=== PATIENT | male | born 1940 | race Caucasian/White ===

== ENCOUNTER 2018-08-27 04:15 | Inpatient (IN) | payer MEDICARE ==
[~2018-08-27] VITALS: Ht 175.3 cm; Wt 63.5 kg
--- NOTE | 2018-08-27 04:24 | NUR ---
BIB [facility] FROM HOME WITH C/O ABD PAIN, PER EMS PT HAS HERNIA AND COLOSTOMY BAG TO LLQ. FSBS-122, 98% R/A, HR-78, B/P-138/87. MONITORS APPLIED, SIDERAILS UP X2, CALL LIGHT WITHIN REACH. MEDICAL STUDENT AT BEDSIDE FOR EVAL
[2018-08-27] MEDS ORDERED: ACET325C5 PO (04:25)
[2018-08-27] MEDS ORDERED: PROSTATE MEDICATION (04:25)
[2018-08-27] MEDS ORDERED: ONDANSETRON 2MG/ML, 2ML IVPush ONE (04:30)
[2018-08-27] MEDS ORDERED: SODIUM CHLORIDE FLUSH 10ML SYR IVF ONE ×2 (04:30→06:30)
[2018-08-27] MEDS ORDERED: MORPHINE SULFATE 4 MG/ML, 1ML IVPush PRN (04:30)
--- NOTE | 2018-08-27 05:09 | NUR ---
per erp hold iv site and medications at this time
[2018-08-27 05:22] LABS: MICROSCOPIC AUTO
[2018-08-27 05:27] LABS: CULTURE INDICATED? YES
[2018-08-27 05:29] LABS: MEAN CORPUSCULAR HEMOGLOBIN 32.3 pg (27.5-34.5); MEAN CORPUSCULAR HGB CONC 32.9 g/dL (33.2-36.2); MEAN CORPUSCULAR VOLUME 98.1 fL (81-97); MEAN PLATELET VOLUME 10.1 fL (7.4-10.4); PLATELET COUNT 193 x10^3/uL (130-400); RED BLOOD COUNT 4.88 x10^6/uL (4.38-5.82); RED CELL DISTRIBUTION WIDTH 15.2 % (9.4-14.8)
[2018-08-27] MEDS ORDERED: CEFTRIAXONE PMX 1GM/50ML 50 ML IV ONE (05:30)
[2018-08-27] MEDS ORDERED: SODIUM CHLORIDE 0.9% 1,000 ML IV ONE ×2 (05:30→06:20)
[2018-08-27] MEDS ORDERED: CEFTRIAXONE PMX 1GM/50ML 50 ML ONE (05:34)
[2018-08-27 05:42] LABS: ALANINE AMINOTRANSFERASE 31 U/L (12-78); ALBUMIN 2.6 g/dL (3.4-5.0); ANION GAP 13 mmol/L (5-15); CALCIUM 9.1 mg/dL (8.5-10.1); CHLORIDE 101 mmol/L (98-107); CREATININE 4.41 mg/dL (0.7-1.3)
[2018-08-27 05:45] LABS: ALKALINE PHOSPHATASE 82 U/L (45-117); BILIRUBIN,TOTAL 1.5 mg/dL (0.2-1.0); TOTAL PROTEIN 7.5 g/dL (6.4-8.2)
--- NOTE | 2018-08-27 05:53 | NUR ---
pt resting calmly, iv fluids and abx infusing, monitors in place, call light within reach. awaiting room for admit
[2018-08-27 06:17] LABS: MD YES
[2018-08-27 06:19] LABS: BAND#(MANUAL) 0.55 x10^3/uL; BANDS%(MANUAL) 3 % (0-7); MONOS#(MANUAL) 0.73 x10^3/uL (0.3-2.7); MONOS% (MANUAL) 4 % (2-9); MYELOCYTES# (MANUAL) 0.18 x10^3/uL (0-0); MYELOCYTES% (MANUAL) 1 % (0-0); SEG#(MANUAL) 16.84 x10^3/uL (1.8-6.8); SEGS% (MANUAL) 92 % (42-75)
[2018-08-27 06:20] LABS: <PLATELET ESTIMATE> ADEQUATE; <PLT MORPHOLOGY> NORMAL PLT MORPH; <RBC MORPHOLOGY> NORMAL
[2018-08-27] MEDS ORDERED: SODIUM CHLORIDE 0.9% 1,000ML IVBOLUS ONE (06:30)
--- NOTE | 2018-08-27 06:40 | NUR ---
PT TO ULTRASOUND
--- NOTE | 2018-08-27 06:51 | NUR ---
report given to arnaldo wiley
--- NOTE | 2018-08-27 06:54 | NUR ---
assumed patient care. patient in us at this time
--- NOTE | 2018-08-27 07:02 | NUR ---
Trae corona in ED - 08/27/18 at 0702 by JAVED ua sent and patient updated on poc. lab at bed. call light with patient
--- NOTE | 2018-08-27 07:07 | NUR ---
Patient from . 2000 ml dark urine emptied from urine bag. Patient VSS.
[2018-08-27 07:58] VITALS: BP 107/74
[2018-08-27] MEDS ORDERED: ACETAMINOPHEN 325 MG TABLET PO PRN (08:30)
[2018-08-27] MEDS ORDERED: POLYETHYLENE GLYCOL 17 GM PACKET PO PRN (08:30)
[2018-08-27] MEDS: HEPARIN 5,000 UNITS/ML, 1ML SQ SCH ×2 (09:25→17:31)
[2018-08-27] MEDS: TAMSULOSIN 0.4 MG CAP.ER.24H PO SCH (09:25)
[2018-08-27] MEDS: SODIUM CHLORIDE 0.9% 1,000 ML IV SCH ×2 (09:25→17:32)
[2018-08-27] MEDS: SENNA/DOCUSATE TABLET PO SCH (09:25)
[2018-08-27] MEDS ORDERED: PHARMACY MAY ADJ FOR RENAL FX MC PRN (11:30)
[2018-08-27 11:35] LABS: ABSOLUTE RETICS # 0.045 x10^6/uL (0.5-1.5); RED BLOOD COUNT 4.48 x10^6/uL (4.38-5.82)
[2018-08-27 11:40] LABS: CALCIUM 8.1 mg/dL (8.5-10.1)
[2018-08-27 12:37] LABS: THYROID STIMULATING HORMONE 0.922 mIU/L (0.358-3.740)
[2018-08-27 13:27] VITALS: BP 97/72
[2018-08-27 18:43] VITALS: BP 111/73
[2018-08-28 00:30] VITALS: BP 114/74
[2018-08-28] MEDS: HEPARIN 5,000 UNITS/ML, 1ML SQ SCH ×3 (01:42→17:56)
[2018-08-28] MEDS: SODIUM CHLORIDE 0.9% 1,000 ML IV SCH ×2 (01:42→09:09)
[2018-08-28 05:37] LABS: MEAN CORPUSCULAR HEMOGLOBIN 32.5 pg (27.5-34.5); MEAN CORPUSCULAR HGB CONC 32.6 g/dL (33.2-36.2); MEAN CORPUSCULAR VOLUME 99.6 fL (81-97); MEAN PLATELET VOLUME 10.1 fL (7.4-10.4); PLATELET COUNT 190 x10^3/uL (130-400); RED BLOOD COUNT 3.94 x10^6/uL (4.38-5.82)
[2018-08-28 05:39] LABS: CHLORIDE 115 mmol/L (98-107)
[2018-08-28 05:47] LABS: ALANINE AMINOTRANSFERASE 27 U/L (12-78); ALBUMIN 1.9 g/dL (3.4-5.0); ALKALINE PHOSPHATASE 65 U/L (45-117); ANION GAP 6 mmol/L (5-15); BILIRUBIN,TOTAL 0.9 mg/dL (0.2-1.0); CALCIUM 7.9 mg/dL (8.5-10.1); TOTAL PROTEIN 5.5 g/dL (6.4-8.2)
[2018-08-28 06:17] LABS: BASOPHILS % (AUTO) 0 % (0-1); EOSINOPHILS # (AUTO) 0.07 x10^3/uL (0-0.4); EOSINOPHILS % (AUTO) 1 % (1-7); LYMPHOCYTES # (AUTO) 0.37 x10^3/uL (1-3.4); LYMPHOCYTES % (AUTO) 3 % (22-44); MD SCAN; MONOCYTES # (AUTO) 0.67 x10^3/uL (0.2-0.8); MONOCYTES % (AUTO) 6 % (2-9); NEUTROPHILS # (AUTO) 10.42 x10^3/uL (1.8-6.8); NEUTROPHILS % (AUTO) 90 % (42-75)
[2018-08-28] MEDS: CEFTRIAXONE PMX 1GM/50ML 50 ML IV SCH (06:17)
[2018-08-28 06:34] VITALS: BP 128/72
[2018-08-28] MEDS: TAMSULOSIN 0.4 MG CAP.ER.24H PO SCH (09:08)
[2018-08-28] MEDS: SENNA/DOCUSATE TABLET PO SCH (09:08)
[2018-08-28] MEDS ORDERED: ERGOCALCIFEROL 50,000 UNIT CAPSULE PO SCH (11:00)
[2018-08-28 12:07] VITALS: BP 138/88
[2018-08-28] MEDS: SODIUM CHLORIDE 0.45% 1,000 ML IV SCH ×2 (12:28→21:10)
[2018-08-28] MEDS: POTASSIUM CHLORIDE 20 MEQ TAB.ER.PRT PO SCH ×2 (12:28→17:55)
[2018-08-28] MEDS ORDERED: POTASSIUM PHOSPHATE 22 MEQ in SODIUM CHLORIDE 0.9% 500 ML IV ONE (14:00)
[2018-08-28 14:25] LABS: CREATININE,URINE RANDOM 51.1 mg/dL
[2018-08-28 14:37] LABS: MICROSCOPIC INDICATED
[2018-08-28] MEDS: FERROUS SULFATE 325 MG TABLET PO SCH (17:55)
[2018-08-28 18:27] VITALS: BP 116/76
[2018-08-29 00:33] VITALS: BP 138/82
[2018-08-29] MEDS: HEPARIN 5,000 UNITS/ML, 1ML SQ SCH ×3 (01:26→16:57)
[2018-08-29] MEDS: SODIUM CHLORIDE 0.45% 1,000 ML IV SCH ×2 (04:30→23:06)
[2018-08-29 05:44] LABS: ANION GAP 6 mmol/L (5-15); CALCIUM 7.2 mg/dL (8.5-10.1); CHLORIDE 117 mmol/L (98-107); CREATININE 0.78 mg/dL (0.7-1.3)
[2018-08-29 05:46] LABS: BASOPHILS % (AUTO) 0 % (0-1); EOSINOPHILS # (AUTO) 0.15 x10^3/uL (0-0.4); EOSINOPHILS % (AUTO) 2 % (1-7); LYMPHOCYTES # (AUTO) 0.53 x10^3/uL (1-3.4); LYMPHOCYTES % (AUTO) 5 % (22-44); MD NO; MEAN CORPUSCULAR HEMOGLOBIN 32.7 pg (27.5-34.5); MEAN CORPUSCULAR HGB CONC 32.5 g/dL (33.2-36.2); MEAN CORPUSCULAR VOLUME 100.3 fL (81-97); MEAN PLATELET VOLUME 9.8 fL (7.4-10.4); MONOCYTES # (AUTO) 0.23 x10^3/uL (0.2-0.8); MONOCYTES % (AUTO) 2 % (2-9); NEUTROPHILS # (AUTO) 9.08 x10^3/uL (1.8-6.8); NEUTROPHILS % (AUTO) 91 % (42-75); PLATELET COUNT 213 x10^3/uL (130-400); RED CELL DISTRIBUTION WIDTH 15.2 % (9.4-14.8)
[2018-08-29] MEDS: CEFTRIAXONE PMX 1GM/50ML 50 ML IV SCH (06:16)
[2018-08-29 06:26] VITALS: BP 129/86
[2018-08-29] MEDS: SENNA/DOCUSATE TABLET PO SCH (08:40)
[2018-08-29] MEDS: TAMSULOSIN 0.4 MG CAP.ER.24H PO SCH (08:40)
[2018-08-29] MEDS: FERROUS SULFATE 325 MG TABLET PO SCH ×2 (08:40→16:57)
[2018-08-29] MEDS ORDERED: POTASSIUM PHOSPHATE 44 MEQ in SODIUM CHLORIDE 0.9% 500 ML IV ONE (09:00)
[2018-08-29 12:41] VITALS: BP 133/89
[2018-08-29 18:53] VITALS: BP 136/89
[2018-08-30 00:21] VITALS: BP 124/86
[2018-08-30] MEDS: HEPARIN 5,000 UNITS/ML, 1ML SQ SCH ×3 (00:42→17:12)
[2018-08-30 05:34] LABS: BASOPHILS % (AUTO) 0 % (0-1); EOSINOPHILS # (AUTO) 0.13 x10^3/uL (0-0.4); EOSINOPHILS % (AUTO) 2 % (1-7); LYMPHOCYTES % (AUTO) 6 % (22-44); MD NO; MEAN CORPUSCULAR HEMOGLOBIN 32.6 pg (27.5-34.5); MEAN CORPUSCULAR VOLUME 98.9 fL (81-97); MEAN PLATELET VOLUME 9.9 fL (7.4-10.4); MONOCYTES # (AUTO) 0.43 x10^3/uL (0.2-0.8); MONOCYTES % (AUTO) 5 % (2-9); NEUTROPHILS % (AUTO) 88 % (42-75); PLATELET COUNT 224 x10^3/uL (130-400); RED BLOOD COUNT 4.01 x10^6/uL (4.38-5.82); RED CELL DISTRIBUTION WIDTH 15.1 % (9.4-14.8)
[2018-08-30 05:41] LABS: CHLORIDE 111 mmol/L (98-107)
[2018-08-30 05:49] LABS: ALANINE AMINOTRANSFERASE 52 U/L (12-78); ALBUMIN 1.8 g/dL (3.4-5.0); ALKALINE PHOSPHATASE 75 U/L (45-117); ANION GAP 8 mmol/L (5-15); BILIRUBIN,TOTAL 0.8 mg/dL (0.2-1.0); CALCIUM 7.2 mg/dL (8.5-10.1); CREATININE 0.76 mg/dL (0.7-1.3); TOTAL PROTEIN 5.5 g/dL (6.4-8.2)
[2018-08-30] MEDS: CEFTRIAXONE PMX 1GM/50ML 50 ML IV SCH (05:49)
[2018-08-30] MEDS: SODIUM CHLORIDE 0.45% 1,000 ML IV SCH (08:05)
[2018-08-30] MEDS: FERROUS SULFATE 325 MG TABLET PO SCH ×2 (08:25→17:12)
[2018-08-30] MEDS: TAMSULOSIN 0.4 MG CAP.ER.24H PO SCH (08:26)
[2018-08-30] MEDS: SENNA/DOCUSATE TABLET PO SCH (08:26)
[2018-08-30 08:46] VITALS: BP 130/89
[2018-08-30] MEDS ORDERED: POTASSIUM PHOSPHATE 44 MEQ in SODIUM CHLORIDE 0.9% 500 ML IV ONE (09:00)
[2018-08-30] MEDS ORDERED: MAGNESIUM SULFATE PMX 2GM/50ML 50 ML IV ONE ×2 (09:00→11:00)
[2018-08-30] MEDS: CARVEDILOL 3.125 MG TABLET PO SCH ×2 (09:59→17:12)
[2018-08-30 13:00] VITALS: BP 117/72
[2018-08-30 19:29] VITALS: BP 118/80
[2018-08-31] MEDS: HEPARIN 5,000 UNITS/ML, 1ML SQ SCH ×3 (00:10→17:18)
[2018-08-31 01:10] VITALS: BP 133/78
[2018-08-31 05:10] LABS: CHLORIDE 112 mmol/L (98-107)
[2018-08-31 05:19] LABS: ALANINE AMINOTRANSFERASE 56 U/L (12-78); ALKALINE PHOSPHATASE 85 U/L (45-117); ANION GAP 7 mmol/L (5-15); BILIRUBIN,TOTAL 0.7 mg/dL (0.2-1.0); CALCIUM 7.4 mg/dL (8.5-10.1); CHOL/HDL RATIO 4.8; CHOLESTEROL, TOTAL 92 mg/dL (140-239); CREATININE 0.68 mg/dL (0.7-1.3); HDL CHOL % 21 % (26-37); HDL CHOLESTEROL (DIRECT) 19 mg/dL (40-60); LDL CHOLESTEROL,CALCULATED 55 mg/dL (54-169); LDL/HDL RATIO 2.9 (0.5-3.0); TOTAL PROTEIN 5.4 g/dL (6.4-8.2); TRIGLYCERIDES 89 mg/dL (50-200); VLDL CHOLESTEROL 18 mg/dL (0-25)
[2018-08-31] MEDS: CARVEDILOL 3.125 MG TABLET PO SCH ×2 (05:47→17:18)
[2018-08-31] MEDS: CEFTRIAXONE PMX 1GM/50ML 50 ML IV SCH (05:47)
[2018-08-31] MEDS ORDERED: ASPIRIN 81 MG TABLET EC PO SCH (06:00)
[2018-08-31 07:35] VITALS: BP 121/88
[2018-08-31] MEDS: TAMSULOSIN 0.4 MG CAP.ER.24H PO SCH (08:47)
[2018-08-31] MEDS: SENNA/DOCUSATE TABLET PO SCH (08:47)
[2018-08-31] MEDS: FERROUS SULFATE 325 MG TABLET PO SCH ×2 (08:47→17:18)
[2018-08-31] MEDS ORDERED: LISINOPRIL 5 MG TABLET PO SCH (10:30)
[2018-08-31] MEDS ORDERED: MAGNESIUM SULFATE PMX 2GM/50ML 50 ML IV ONE (10:30)
[2018-08-31 13:55] VITALS: BP 106/66
[2018-08-31] MEDS ORDERED: FERR-51 PO (15:43)
[2018-08-31] MEDS ORDERED: ERGO500017 PO (15:43)
[2018-08-31] MEDS ORDERED: ASPI81TA45 PO (15:43)
[2018-08-31] MEDS ORDERED: TAMS-11 PO (15:43)
[2018-08-31] MEDS ORDERED: CEFD300C37 PO (15:43)
[2018-08-31] MEDS ORDERED: SPIR25TA5 PO (15:43)
[2018-08-31] MEDS ORDERED: LISI5TAB7 PO (15:43)
[2018-08-31] MEDS ORDERED: CARV3.1212 PO (15:43)
[2018-09-01] MEDS ORDERED: SPIRONOLACTONE 25 MG TABLET PO SCH (09:00)
== END 2018-08-31 18:54 | disposition hospice, inpatient (51) | DRG 871 ==
LOC: ED 05:30 → EDIP 06:33 → 4EST 07:29
PROVIDERS: ADMIT Internal Medicine; ATTEND Internal Medicine
DX: A41.9 Sepsis, unspecified organism (principal); G93.41 Metabolic encephalopathy; N17.9 Acute kidney failure, unspecified; E46 Unspecified protein-calorie malnutrition; E87.0 Hyperosmolality and hypernatremia; I42.9 Cardiomyopathy, unspecified; I50.20 Unspecified systolic (congestive) heart failure; N13.8 Other obstructive and reflux uropathy; D50.9 Iron deficiency anemia, unspecified; D75.89 Other specified diseases of blood and blood-forming organs; E83.39 Other disorders of phosphorus metabolism; E87.6 Hypokalemia; G89.29 Other chronic pain; H91.90 Unspecified hearing loss, unspecified ear; I08.0 Rheumatic disorders of both mitral and aortic valves; I48.2 Chronic atrial fibrillation; K59.00 Constipation, unspecified; N32.89 Other specified disorders of bladder; N40.1 Benign prostatic hyperplasia with lower urinary tract symptoms; R65.20 Severe sepsis without septic shock; R33.8 Other retention of urine; N18.9 Chronic kidney disease, unspecified; N25.0 Renal osteodystrophy; N30.91 Cystitis, unspecified with hematuria; Z68.20 Body mass index [BMI] 20.0-20.9, adult; Z72.0 Tobacco use; Z85.038 Personal history of other malignant neoplasm of large intestine; Z91.81 History of falling; Z93.3 Colostomy status; Z95.0 Presence of cardiac pacemaker; Z79.82 Long term (current) use of aspirin
CPT/HCPCS: 36415; 76770; 80048; 80053; 80061; 81001; 82306; 82310; 82436; 82570; 82607; 82728; 83540; 83550; 83605; 83690; 83735; 83970; 84100; 84133; 84145; 84153; 84156; 84300; 84443; 84550; 85025; 85045; 87040; 87086; 87205; 93005; 93306; 96365; G0378; J0696; J1644; J3475; J7030; J7040

== ENCOUNTER 2018-09-04 19:07 | Emergency (ER) | payer MEDICARE ==
[~2018-09-04] VITALS: Ht 175.3 cm; Wt 58.5 kg
[~2018-09-04 19:07] MED LIST: ACET325C5 PO; ASPI81TA45 PO; CARV3.1212 PO; CEFD300C37 PO; ERGO500017 PO; FERR-51 PO; LISI5TAB7 PO; PROSTATE MEDICATION; SPIR25TA5 PO; TAMS-11 PO
[2018-09-04 19:09] VITALS: BP 136/95
--- NOTE | 2018-09-04 19:41 | NUR ---
PT IN GOWN IN [facility] WITH YAYA PORTER AT BS. PT EDUCATED ON ER PROCESS AND POC. ALL QUESTIONS ANSWERED. PT HAS CALL LIGHT WITHIN REACH AT THIS TIME.
--- NOTE | 2018-09-04 19:58 | NUR ---
URINE COLLECTED FROM MAIN MENCHACA LINE VIA SYRINGE PER [place]. URINE WALKED TO LAB IN SPECIMEN CUP
[2018-09-04] MEDS ORDERED: ACETAMINOPHEN 500 MG TABLET PO ONE (20:00)
[2018-09-04] MEDS ORDERED: ACETAMINOPHEN 500 MG TABLET ONE (20:03)
[2018-09-04 20:08] LABS: BASOPHILS % (AUTO) 0 % (0-1); EOSINOPHILS # (AUTO) 0.09 x10^3/uL (0-0.4); EOSINOPHILS % (AUTO) 1 % (1-7); LYMPHOCYTES # (AUTO) 0.55 x10^3/uL (1-3.4); LYMPHOCYTES % (AUTO) 7 % (22-44); MD NO; MEAN CORPUSCULAR HEMOGLOBIN 31.6 pg (27.5-34.5); MEAN CORPUSCULAR HGB CONC 32.2 g/dL (33.2-36.2); MONOCYTES # (AUTO) 0.72 x10^3/uL (0.2-0.8); MONOCYTES % (AUTO) 9 % (2-9); NEUTROPHILS # (AUTO) 6.86 x10^3/uL (1.8-6.8); NEUTROPHILS % (AUTO) 84 % (42-75); PLATELET COUNT 233 x10^3/uL (130-400); RED BLOOD COUNT 3.81 x10^6/uL (4.38-5.82); RED CELL DISTRIBUTION WIDTH 15.3 % (9.4-14.8)
[2018-09-04 20:13] LABS: MICROSCOPIC AUTO
[2018-09-04 20:17] LABS: ALANINE AMINOTRANSFERASE 49 U/L (12-78); ALBUMIN 2.6 g/dL (3.4-5.0); ANION GAP 5 mmol/L (5-15); CALCIUM 8.5 mg/dL (8.5-10.1); CHLORIDE 109 mmol/L (98-107)
[2018-09-04 20:19] LABS: ALKALINE PHOSPHATASE 87 U/L (45-117); BILIRUBIN,TOTAL 0.7 mg/dL (0.2-1.0); CREATININE 0.94 mg/dL (0.7-1.3); TOTAL PROTEIN 6.5 g/dL (6.4-8.2)
[2018-09-04 20:19] LABS: CULTURE INDICATED? YES
--- NOTE | 2018-09-04 20:19 | NUR ---
PT MEDICATED PER MAR FOR PAIN. PT MENCHACA FLUSHED WITH 120 ML OF STERILE WATER. PT DENIED ANY DISCOMFORT AND TOLERATED PROCEDURE WELL.
--- NOTE | 2018-09-04 21:08 | NUR ---
PT D/C WITH D/C SUMMARY. ALL QUESTIONS ANSWERED. PT PROVIDED NIGHT AND DAY DRAINAGE BAG FOR MENCHACA. PT TO F/U WITH UROLOGY EARLY NEXT WEEK. PT AND MEDICAL OFFICE REP DENY ANY OTHER NEEDS PERTAINING TO THIS VISIT. PT AMBULATES TO REGISTRATION DESK WITH STEADY GAIT FOR D/C HOME.
== END 2018-09-04 21:23 | disposition home or self-care (01) ==
LOC: ED 21:00
DX: N30.00 Acute cystitis without hematuria (principal); Z93.3 Colostomy status; Z95.0 Presence of cardiac pacemaker; Z87.438 Personal history of other diseases of male genital organs; Z87.891 Personal history of nicotine dependence
CPT/HCPCS: 36415; 80053; 81001; 85025; 87086; 99283; 99284

== ENCOUNTER 2019-05-11 14:24 | Emergency (ER) | payer MEDICARE ==
[~2019-05-11] VITALS: Ht 172.7 cm; Wt 60.0 kg
[~2019-05-11 14:24] MED LIST changes: -ACET325C5 PO; +ACET325C6 PO; +BUTA-177 PO; +CIPR500T87 PO; +DILT60CA PO; +RISP1TAB45 PO
--- NOTE | 2019-05-11 14:36 | NUR ---
RAJAN. REPORT RECEIVED FROM EMS. PT HAS OSTOMY AND MENCHACA CATH(UNKNOWN REASON). PER PT "DECREASE URINE OUT PUT FOR 4 DAYS AND ABD PAIN" [place]. POOR HISTORIAN. PT DENIES ANY OTHER SYMPTOMS AT THIS TIME. ALL MONITORS IN PLACED. CALL LIGHT WITHIN REACH. PER EMS "PT DOESN'T HAVE CAR NO FOOD AT HOME. PT MIGHT NEED SC." RESPS EVEN AND UNLABORED. PT'S AOX4.
--- NOTE | 2019-05-11 15:53 | NUR ---
pt resting in [facility]. pt's aox4. resps even and unlabored. all monitors in place. call light within reach.
--- NOTE | 2019-05-11 16:10 | NUR ---
CHART MISSING. MINIATURE TRAIN DRIVER NOTIFIED AND MADE A NEW CHART FOR THIS PT.
--- NOTE | 2019-05-11 16:27 | NUR ---
EDMD AT BEDSIDE TO EVALUATE AT THIS TIME.
--- NOTE | 2019-05-11 16:37 | NUR ---
LAB AT BEDSIDE AT THIS TIME.
[2019-05-11 16:52] LABS: BASOPHILS # (AUTO) 0.02 x10^3/uL (0-0.1); BASOPHILS % (AUTO) 0 % (0-1); EOSINOPHILS % (AUTO) 0 % (1-7); LYMPHOCYTES # (AUTO) 0.26 x10^3/uL (1-3.4); LYMPHOCYTES % (AUTO) 2 % (22-44); MD NO; MEAN CORPUSCULAR HEMOGLOBIN 31.8 pg (27.5-34.5); MEAN CORPUSCULAR HGB CONC 32.8 g/dL (33.2-36.2); MEAN CORPUSCULAR VOLUME 97.1 fL (81-97); MEAN PLATELET VOLUME 8.8 fL (7.4-10.4); MONOCYTES # (AUTO) 0.49 x10^3/uL (0.2-0.8); MONOCYTES % (AUTO) 4 % (2-9); NEUTROPHILS # (AUTO) 11.26 x10^3/uL (1.8-6.8); NEUTROPHILS % (AUTO) 94 % (42-75); PLATELET COUNT 229 x10^3/uL (130-400); RED BLOOD COUNT 4.55 x10^6/uL (4.38-5.82); RED CELL DISTRIBUTION WIDTH 15.4 % (9.4-14.8)
--- NOTE | 2019-05-11 16:53 | NUR ---
PT'S MENCHACA CATH REMOVED AND INSERTED A NEW FORLEY CATH PER EDMD VERBAL ORDER. PT TOLERATED WELL. USING STERIKE TECHNIQUE. UA SENT.
[2019-05-11 17:05] LABS: ALANINE AMINOTRANSFERASE 12 U/L (12-78); ALBUMIN 3.5 g/dL (3.4-5.0); ANION GAP 8 mmol/L (5-15); CALCIUM 10.5 mg/dL (8.5-10.1); CHLORIDE 104 mmol/L (98-107); CREATININE 1.47 mg/dL (0.7-1.3)
[2019-05-11 17:08] LABS: ALKALINE PHOSPHATASE 98 U/L (45-117); BILIRUBIN,TOTAL 0.9 mg/dL (0.2-1.0); TOTAL PROTEIN 8.4 g/dL (6.4-8.2)
[2019-05-11 17:39] LABS: CULTURE INDICATED? YES; MICROSCOPIC INDICATED
[2019-05-11] MEDS ORDERED: CEFTRIAXONE PMX 1GM/50ML 50 ML IV ONE (18:00)
[2019-05-11] MEDS ORDERED: CEFTRIAXONE PMX 1GM/50ML 50 ML ONE (18:11)
[2019-05-11 18:36] VITALS: BP 143/84
--- NOTE | 2019-05-11 18:40 | NUR ---
per edmd blood culture needed before abx. awaiting blood culture order at this time.
--- NOTE | 2019-05-11 18:42 | NUR ---
per edmd no blood culture needed d/t dc.
--- NOTE | 2019-05-11 19:24 | NUR ---
report given to fernando mcintosh.
--- NOTE | 2019-05-11 20:02 | NUR ---
Patient/Caregiver given discharge instructions and they have confirmed that they understand the instructions. Patient ambulatory with steady gait. Gill PAZ applying leg bag to casillas a this time.
== END 2019-05-11 20:04 | disposition other institution (70) ==
LOC: ED 19:55
DX: N40.1 Benign prostatic hyperplasia with lower urinary tract symptoms (principal); R33.8 Other retention of urine; N30.00 Acute cystitis without hematuria; I48.91 Unspecified atrial fibrillation; Z95.0 Presence of cardiac pacemaker
CPT/HCPCS: 36415; 51702; 80053; 81001; 85025; 87077; 87086; 87186; 96365; 99284; J0696; 99285

== ENCOUNTER 2019-07-02 15:08 | Emergency (ER) | payer MEDICARE ==
[~2019-07-02] VITALS: Ht 175.3 cm; Wt 52.3 kg
[2019-07-02] MEDS ORDERED: SODIUM CHLORIDE 0.9% 1,000ML IVBOLUS ONE (16:00)
[2019-07-02] MEDS ORDERED: SODIUM CHLORIDE FLUSH 10ML SYR IVF ONE (16:00)
[2019-07-02 16:07] LABS: BASOPHILS # (AUTO) 0.02 x10^3/uL (0-0.1); BASOPHILS % (AUTO) 0 % (0-1); EOSINOPHILS % (AUTO) 0 % (1-7); LYMPHOCYTES % (AUTO) 3 % (22-44); MD NO; MEAN CORPUSCULAR HEMOGLOBIN 31.7 pg (27.5-34.5); MEAN CORPUSCULAR HGB CONC 32.7 g/dL (33.2-36.2); MEAN CORPUSCULAR VOLUME 96.7 fL (81-97); MEAN PLATELET VOLUME 9.2 fL (7.4-10.4); MONOCYTES % (AUTO) 4 % (2-9); NEUTROPHILS # (AUTO) 10.17 x10^3/uL (1.8-6.8); NEUTROPHILS % (AUTO) 93 % (42-75); PLATELET COUNT 178 x10^3/uL (130-400); RED BLOOD COUNT 4.59 x10^6/uL (4.38-5.82); RED CELL DISTRIBUTION WIDTH 15.1 % (9.4-14.8)
[2019-07-02 16:21] LABS: ALANINE AMINOTRANSFERASE 9 U/L (12-78); ALBUMIN 3.4 g/dL (3.4-5.0); ANION GAP 17 mmol/L (5-15); CALCIUM 9.5 mg/dL (8.5-10.1); CHLORIDE 101 mmol/L (98-107); CREATININE 1.89 mg/dL (0.7-1.3)
[2019-07-02 16:26] LABS: ALKALINE PHOSPHATASE 82 U/L (45-117); BILIRUBIN,TOTAL 2.1 mg/dL (0.2-1.0)
[2019-07-02 18:55] VITALS: BP 138/72
== END 2019-07-02 18:58 | disposition home or self-care (01) ==
LOC: ED 16:27
DX: R42 Dizziness and giddiness (principal); I95.9 Hypotension, unspecified; R07.9 Chest pain, unspecified; R06.02 Shortness of breath; N18.9 Chronic kidney disease, unspecified; R79.89 Other specified abnormal findings of blood chemistry; I48.91 Unspecified atrial fibrillation; Z95.0 Presence of cardiac pacemaker; Z87.891 Personal history of nicotine dependence
CPT/HCPCS: 36415; 71045; 80053; 83880; 85025; 93005; 96360; 99285; J7030

== ENCOUNTER 2019-08-24 11:11 | Emergency (ER) | payer MEDICARE ==
[~2019-08-24] VITALS: Ht 172.7 cm; Wt 56.0 kg
--- NOTE | 2019-08-24 11:55 | NUR ---
upon tranfer from ems lizkristopher pt yelled "I want this damn thing out or I will mukesh you" bedside us shows bladder is very distended. attempt to educate pt on situation and need to pull casillas and replace through written communication. pt is not receptive to education and states "I will stop you from putting a new one in" again pt informed of the need to drain bladder. md made aware of situation. md suggetion to attempt to irrigate casillas. irrigation attempt unsuccesful. pt states "you're not putting another damn one in me, i'll mukesh you. i'll mukesh you to take this damn thing out." pt explained the need for a new casillas and he is refusing still.
[2019-08-24 12:30] LABS: MEAN CORPUSCULAR HEMOGLOBIN 32.2 pg (27.5-34.5); MEAN CORPUSCULAR HGB CONC 32.6 g/dL (33.2-36.2); MEAN CORPUSCULAR VOLUME 98.7 fL (81-97); MEAN PLATELET VOLUME 9.2 fL (7.4-10.4); PLATELET COUNT 224 x10^3/uL (130-400); RED BLOOD COUNT 4.47 x10^6/uL (4.38-5.82); RED CELL DISTRIBUTION WIDTH 15.8 % (9.4-14.8)
[2019-08-24 12:42] LABS: ALBUMIN 3.5 g/dL (3.4-5.0); ANION GAP 9 mmol/L (5-15); CALCIUM 9.7 mg/dL (8.5-10.1); CHLORIDE 105 mmol/L (98-107)
[2019-08-24 12:47] LABS: ALANINE AMINOTRANSFERASE 13 U/L (12-78); ALKALINE PHOSPHATASE 81 U/L (45-117); BILIRUBIN,TOTAL 1.2 mg/dL (0.2-1.0); CREATININE 1.58 mg/dL (0.7-1.3)
[2019-08-24 12:48] LABS: BASOPHILS # (AUTO) 0.02 x10^3/uL (0-0.1); BASOPHILS % (AUTO) 0 % (0-1); EOSINOPHILS % (AUTO) 0 % (1-7); LYMPHOCYTES # (AUTO) 0.24 x10^3/uL (1-3.4); LYMPHOCYTES % (AUTO) 2 % (22-44); MD SCAN; MONOCYTES # (AUTO) 0.33 x10^3/uL (0.2-0.8); MONOCYTES % (AUTO) 3 % (2-9); NEUTROPHILS # (AUTO) 11.96 x10^3/uL (1.8-6.8); NEUTROPHILS % (AUTO) 95 % (42-75)
--- NOTE | 2019-08-24 13:20 | NUR ---
REPORT FROM SHEILA, ASSUME CARE OF PT AT THIS TIME.
--- NOTE | 2019-08-24 13:36 | NUR ---
AWAITING UA. PT RESTING QUIETLY IN ROOM. CALL LIGHT WITHIN REACH.
[2019-08-24 13:38] LABS: MICROSCOPIC INDICATED
[2019-08-24 13:42] VITALS: BP 114/87
--- NOTE | 2019-08-24 13:55 | NUR ---
ALL RESULTS BACK, PT FOR RECHECK.
[2019-08-24] MEDS ORDERED: CEFTRIAXONE 1,000 MG IM ONE (14:00)
[2019-08-24] MEDS ORDERED: CEFTRIAXONE PMX 1GM/50ML 50 ML ONE (14:17)
--- NOTE | 2019-08-24 14:41 | NUR ---
SW IN TO SEE PT.
--- NOTE | 2019-08-24 15:25 | NUR ---
IV D/C'D AFTER ROCEPHIN. MENCHACA PLACED TO LEG BAG PER PT REQUEST. TEACHING DONE WITH WRITING ON PAD. PT VERBALIZES UNDERSTANDING OF D/C INSTRUCTS AND FOLLOW UP. 1500 CC URINE OUTPUT FROM LARGE BAG. PT PROVIDED CAB VOUCHER FOR SAFE RIDE HOME.
== END 2019-08-24 15:27 | disposition home or self-care (01) ==
LOC: ED 13:08
DX: N30.00 Acute cystitis without hematuria (principal); N40.1 Benign prostatic hyperplasia with lower urinary tract symptoms; R10.9 Unspecified abdominal pain; R33.8 Other retention of urine; I48.91 Unspecified atrial fibrillation; Z95.0 Presence of cardiac pacemaker; Z72.9 Problem related to lifestyle, unspecified; Z87.891 Personal history of nicotine dependence
CPT/HCPCS: 36415; 51702; 80053; 81001; 85025; 87077; 87086; 87186; 96372; 99284; J0696

== ENCOUNTER 2019-12-07 08:23 | Emergency (ER) | payer MEDICARE ==
[~2019-12-07] VITALS: Ht 175.3 cm; Wt 55.0 kg
[2019-12-07 08:28] VITALS: BP 131/105
--- NOTE | 2019-12-07 09:08 | NUR ---
getting patient ostomy supplies which was his chief complaint.
== END 2019-12-07 09:21 | disposition home or self-care (01) ==
LOC: ED 08:57
DX: Z43.3 Encounter for attention to colostomy (principal); Z59.0 Homelessness; Z87.448 Personal history of other diseases of urinary system; F17.210 Nicotine dependence, cigarettes, uncomplicated; Z95.0 Presence of cardiac pacemaker
CPT/HCPCS: 99283